=== PATIENT | female | born 1985 | race Hispanic/Latino ===

== ENCOUNTER 2019-07-19 05:46 | Inpatient (IN) | payer MEDICAID ==
[~2019-07-19] VITALS: Ht 160 cm; Wt 78.5 kg
[2019-07-19] MEDS ORDERED: LACTATED RINGERS 1000ML 1,000 ML IV PRN (05:52)
[2019-07-19] MEDS ORDERED: ROPIVACAINE 0.2% 100ML VIAL 100 ML EP SCH (06:00)
[2019-07-19] MEDS ORDERED: LACTATED RINGERS 500 ML 500 ML IV PRN (06:00)
[2019-07-19] MEDS ORDERED: NALOXONE HCL 0.4 MG/1 ML ML IV PRN (06:00)
[2019-07-19] MEDS ORDERED: EPHEDRINE SULFATE 50 MG/ML AMPULE IVP PRN (06:00)
[2019-07-19] MEDS ORDERED: OXYTOCIN-LR 20 UNITS/1000 ML 1,000 ML IV SCH (06:00)
[2019-07-19 06:50] LABS: APPEARANCE,URINE CLEAR (CLEAR); BILIRUBIN,URINE NEGATIVE (NEGATIVE); COLOR,URINE YELLOW (YELLOW); GLUCOSE, URINE (UA) NEGATIVE (NEGATIVE); KETONES,URINE NEGATIVE (NEGATIVE); LEUKOCYTE ESTERASE ,URINE TRACE (NEGATIVE); NITRATE,URINE NEGATIVE (NEGATIVE); OCCULT BLOOD,URINE NEGATIVE (NEGATIVE); PROTEIN,URINE NEGATIVE (NEGATIVE); UROBILINOGEN,URINE 0.2 mg/dL (0.2-1.0)
[2019-07-19 07:09] VITALS: BP 134/83
[2019-07-19] MEDS ORDERED: OXYTOCIN 10 USP UNITS/ML 20 UNIT in LACTATED RINGERS 1000ML 1,000 ML IV SCH (07:30)
[2019-07-19 07:33] LABS: BACTERIA,URINE Many /HPF (None Seen); RBC,URINE 0-1 /HPF (0-1); SQUAMOUS EPITHELIAL CELL,UR Moderate /HPF (0-2)
[2019-07-19 07:35] LABS: HEMATOCRIT 35.8 % (36-48); MEAN CORPUSCULAR HEMOGLOBIN 29.8 pg (27.0-33.0); MEAN CORPUSCULAR VOLUME 90.4 fL (79-99); PLATELET COUNT (AUTO) 208 K/uL (130-400); RED BLOOD CELL COUNT(AUTO) 3.96 MIL/uL (4.00-5.50); RED CELL DISTRIBUTION WIDTH 13.2 % (11.0-15.5); WHITE BLOOD COUNT (AUTO) 10.1 K/uL (4.8-10.8)
--- NOTE | 2019-07-19 11:05 | NUR ---
FUNDUS FIRM, BLEEDING SCANT. ICE PACK TO PERINEUM CONTINUES.
[2019-07-19] MEDS ORDERED: WITCH HAZEL 1 PAD TP PRN (11:15)
[2019-07-19] MEDS ORDERED: DIPH,PERTUSS(ACELL),TET VAC/PF 0.5 ML VIAL IM PRN (11:15)
[2019-07-19] MEDS ORDERED: BENZOCAINE/LANOLIN/ALOE VERA 60 ML AEROSOL TP PRN (11:15)
[2019-07-19] MEDS ORDERED: ACETAMINOPHEN-CODEINE 300/30MG TAB PO PRN (11:15)
[2019-07-19] MEDS ORDERED: LANOLIN 30GM OINTMENT TP PRN (11:15)
--- NOTE | 2019-07-19 11:20 | NUR ---
FUNDUS FIRM, BLEEDING SCANT. NO CLOTS EXPELLED. ICE PACK CONTINUES.
[2019-07-19 11:23] VITALS: BP 119/71
[2019-07-19] MEDS ORDERED: PNV1TABL17 PO (11:27)
--- NOTE | 2019-07-19 11:35 | NUR ---
FUNDUS FIRM, BLEEDING SCANT. NO CLOTS EXPELLED. BABY SKIN TO SKIN.
--- NOTE | 2019-07-19 11:40 | NUR ---
FUNDUS FIRM, BLEEDING SCANT. NO CLOTS EXPELLED. NO PAIN REPORTED. ADVISED PATIENT TO CALL WITH ANY NEEDS OR CONCERNS.
[2019-07-19] MEDS: OXYTOCIN-LR 20 UNITS/1000 ML 1,000 ML IV SCH (11:49)
--- NOTE | 2019-07-19 12:40 | NUR ---
PATIENT ABLE TO AMBULATE TO RESTROOM WITHOUT ANY C/O DIZZINESS. PT VOIDED 700ML. PERICARE GIVEN.
--- NOTE | 2019-07-19 12:55 | NUR ---
QBL= 65G 2 HOUR
[2019-07-19 13:03] VITALS: BP 122/80
[2019-07-19] MEDS: IBUPROFEN 600 MG TABLET PO PRN (14:36)
[2019-07-19 16:00] VITALS: BP 97/56
[2019-07-19 19:52] VITALS: BP 109/69
[2019-07-19] MEDS: DOCUSATE SODIUM 100 MG CAP PO SCH (21:36)
[2019-07-20 00:24] VITALS: BP 115/76
[2019-07-20] MEDS: IBUPROFEN 600 MG TABLET PO PRN ×2 (00:51→08:49)
[2019-07-20 04:25] VITALS: BP 100/71
[2019-07-20 07:19] VITALS: BP 114/68
[2019-07-20 08:10] LABS: HEPATITIS Bs ANTIGEN SCREEN P Negative (Negative)
[2019-07-20] MEDS: DOCUSATE SODIUM 100 MG CAP PO SCH (08:47)
[2019-07-20] MEDS: OXYTOCIN-LR 20 UNITS/1000 ML 1,000 ML IV SCH (11:15)
[2019-07-20 11:35] VITALS: BP 112/67
--- NOTE | 2019-07-20 14:40 | NUR ---
PATIENT LEFT UNIT VIA WHEELCHAIR WITH BABY IN HAND. PERSONAL VEHICLE USED FOR TRANSPORTATION. BABY SECURE IN CARSEAT. NO COMPLAINTS OR CONCERNS ADDRESSED FROM PATIENT ON DISCHARGE.
== END 2019-07-20 14:40 | disposition home or self-care (01) | DRG 560 ==
LOC: LDH 05:46 → WSH 12:58 → PREOBSVTOIN 07-26 05:46
PROC: 10E0XZZ Delivery of Products of Conception, External Approach (ICD-10-PCS; principal; 2019-07-19)
PROC: 3E0234Z Introduction of Serum, Toxoid and Vaccine into Muscle, Percutaneous Approach (ICD-10-PCS; 2019-07-19)
DX: O69.81X0 Labor and delivery complicated by cord around neck, without compression, not applicable or unspecified (principal); Z37.0 Single live birth; Z23 Encounter for immunization; Z3A.39 39 weeks gestation of pregnancy
CPT/HCPCS: 36415; 76815; 81001; 85027; 86592; 86850; 86900; 86901; 87088; 87340; 90715; A4314; G0378; J2590; J2795

== ENCOUNTER → 2022-08-07 | Outpatient (CLI) | payer BC, MEDICAID ==
[~2022-08-07] MED LIST: PNV1TABL17 PO
== END | disposition home or self-care (01) ==
LOC: RAH 13:40
PROVIDERS: ATTEND Obstetrics & Gynecology
DX: R10.31 Right lower quadrant pain (principal); I86.8 Varicose veins of other specified sites
CPT/HCPCS: 76882

== ENCOUNTER 2022-10-27 15:57 | Emergency (ER) | payer BC, MEDICAID ==
[~2022-10-27] VITALS: Ht 160 cm; Wt 78.7 kg
[~2022-10-27 15:57] MED LIST changes: +IBUP-2088 PO
[2022-10-27] MEDS ORDERED: KETO10 PO (17:41)
[2022-10-27] MEDS ORDERED: MORPHINE 4 MG SYG ONE (17:45)
[2022-10-27] MEDS ORDERED: CIPR7.5D OT (17:54)
[2022-10-27] MEDS ORDERED: AMOX500C2 PO (17:54)
[2022-10-27] MEDS ORDERED: ACETAMINOPHEN WITH CODEINE 1 TAB TAB PO ONE (18:00)
[2022-10-27] MEDS ORDERED: MORPHINE 4 MG SYG IM ONE (18:00)
[2022-10-27 18:26] VITALS: BP 148/80; PULSE 82; RESP 18; O2SAT 99
== END 2022-10-27 18:27 | disposition home or self-care (01) ==
LOC: EDH 15:57
DX: R51.9 Headache, unspecified (principal)
CPT/HCPCS: 99284; 96372; J2270

== ENCOUNTER 2022-10-29 10:45 | Observation (INO) | payer BC, MEDICAID ==
[~2022-10-29] VITALS: Ht 160 cm; Wt 78.5 kg
[~2022-10-29 10:45] MED LIST changes: +AMOX500C2 PO; +CIPR7.5D OT; +KETO10 PO
[2022-10-29 10:47] VITALS: BP 155/100; PULSE 81; RESP 16
[2022-10-29] MEDS: LACTATED RINGERS 1000ML IV SCH ×3 (12:40→14:51)
[2022-10-29] MEDS: BUTALB/ACETAMINOPHEN/CAFFEINE 1 EACH TABLET PO PRN ×2 (12:49→17:22)
[2022-10-29 15:18] LABS: BASOPHILS # (AUTO) 0.02 K/uL (0.00-0.20); BASOPHILS % (AUTO) 0.2 % (0.0-5.0); EOSINOPHILS # (AUTO) 0.06 K/uL (0.00-0.70); EOSINOPHILS % (AUTO) 0.7 % (0.0-8.0); HEMATOCRIT 30.6 % (36-48); IMMATURE GRANULOCYTE ABSOLUTE 0.04 K/uL (0-1); LYMPHOCYTES # (AUTO) 2.5 K/uL (1.0-4.8); LYMPHOCYTES % (AUTO) 28.1 % (21.0-51.0); MEAN CORPUSCULAR HEMOGLOBIN 29.2 pg (27.0-33.0); MEAN CORPUSCULAR VOLUME 91.1 fL (79-99); MONOCYTES # (AUTO) 0.4 K/uL (0.1-1.0); MONOCYTES % (AUTO) 4.8 % (3.0-13.0); NEUTROPHILS # (AUTO) 5.8 K/uL (1.8-7.7); NEUTROPHILS % (AUTO) 65.7 % (40.0-77.0); PLATELET COUNT (AUTO) 214 K/uL (130-400); RED BLOOD CELL COUNT(AUTO) 3.36 MIL/uL (4.00-5.50); RED CELL DISTRIBUTION WIDTH 14.6 % (11.0-15.5); WHITE BLOOD COUNT (AUTO) 8.8 K/uL (4.8-10.8)
== END 2022-10-29 17:45 | disposition home or self-care (01) ==
LOC: EDH 10:45 → LDH 10:46
PROVIDERS: ADMIT Obstetrics & Gynecology; ATTEND Obstetrics & Gynecology
DX: O90.89 Other complications of the puerperium, not elsewhere classified (principal); R51.9 Headache, unspecified; R03.0 Elevated blood-pressure reading, without diagnosis of hypertension; H92.09 Otalgia, unspecified ear; M54.2 Cervicalgia
CPT/HCPCS: 96360; 96361; 62273; 85025; 36415; G0378 ×7; G0379; J7120 ×2; 59025

== ENCOUNTER 2024-05-17 11:53 | Emergency (ER) | payer BC, MEDICAID ==
[~2024-05-17] VITALS: Ht 157.5 cm; Wt 77.1 kg
[2024-05-17 12:31] LABS: BASOPHILS # (AUTO) 0.02 K/uL (0.00-0.20); BASOPHILS % (AUTO) 0.3 % (0.0-5.0); EOSINOPHILS # (AUTO) 0.14 K/uL (0.00-0.70); EOSINOPHILS % (AUTO) 1.8 % (0.0-8.0); HEMATOCRIT 38.1 % (36-48); IMMATURE GRANULOCYTE ABSOLUTE 0.02 K/uL (0-1); LYMPHOCYTES # (AUTO) 2.5 K/uL (1.0-4.8); LYMPHOCYTES % (AUTO) 31.2 % (21.0-51.0); MEAN CORPUSCULAR HEMOGLOBIN 30.8 pg (27.0-33.0); MEAN CORPUSCULAR HGB CONC 34.4 g/dL (32.0-36.0); MEAN CORPUSCULAR VOLUME 89.4 fL (79-99); MONOCYTES # (AUTO) 0.4 K/uL (0.1-1.0); MONOCYTES % (AUTO) 5.3 % (3.0-13.0); NEUTROPHILS # (AUTO) 4.8 K/uL (1.8-7.7); NEUTROPHILS % (AUTO) 61.1 % (40.0-77.0); PLATELET COUNT (AUTO) 266 K/uL (130-400); RED BLOOD CELL COUNT(AUTO) 4.26 MIL/uL (4.00-5.50); WHITE BLOOD COUNT (AUTO) 7.9 K/uL (4.8-10.8)
--- NOTE | 2024-05-17 12:39 | ERN ---
General Chief Complaint: Abdominal Pain Stated Complaint: CHEST PAIN Time Seen by MD: 11:56 Time Seen by Midlevel: 11:56 Source: patient History of Present Illness Initial Comments 38-year-old female who presents to the emergency department due to chest pain onset this morning. Patient reports she has been having acid reflux x2 days with a burning sensation down the chest. Denies any difficulty breathing, abdominal pain, nausea, vomiting or further associated symptoms. Denies si gnificant past medical history. Allergies: Coded Allergies: No Known Drug Allergies (Unverified Allergy, Unknown, 07/19/19) Home Meds Active Scripts Omeprazole (Omeprazole) 10 Mg Capsule.dr, 10 MG PO DAILY for 7 Days, #7 CAP Prov:LAZARUS LYON 05/17/24 Amoxicillin (Amoxicillin) 500 Mg Capsule, 500 MG PO TID for 10 Days, #30 CAP Prov:ESPERANZA DUPONT Sr., MD 10/27/22 Ciprofloxacin HCl/Dexameth (Ciprodex Otic Suspension) 7.5 Ml Drops.susp, 7.5 ML OT TID for 10 Days, #2 DROP Prov:ESPERANZA DUPONT Sr., MD 10/27/22 Ketorolac Tromethamine (Toradol) 10 Mg Tab, 10 MG PO TID for Headache, #6 TAB 0 Refills Please do not mix with other NSAIDS; also do not renew this prescription for at least one month Prov:ESPERANZA DUPONT Sr., MD 10/27/22 Reported Medications Ibuprofen (Motrin/Advil) 600 Mg Tab, 600 MG PO Q8H, #15 TAB 10/26/22 Pnv Cmb#21/Iron/Folic Acid ( Complete Caplet) 1 Each Tablet, 1 EACH PO DAILY, TAB 07/19/19 Past Medical History Past Medical History: No Pertinent History, Anxiety, GERD Past Surgical History: None, Unknown Social History Social History: Negative, Lives with family Female( History) LMP: Apr 14, 2025 ROS Dictation Constitutional: Negative for fever,chills, and weight loss Eyes: Negative for injury, pain,redness, and discharge ENT: Negative for injury,pain or swelling Cardiovascular: Positive for chest pain Negative for chest pain, palpitations, and edema Respiratory: Negative for shortness of breath, cough, and wheezing, Abdomen/GI: Negative for abdominal pain, nausea, vomiting, diarrhea, and constipation Back: Negative for injury and pain : Negative for painful urination, bleeding or discharge MS/Extremity: Negative for injury and deformity Skin: Negative for rash, and discoloration Neuro: Negative for headache, weakness, numbness, tingling, and seizure Psych: Negative for suicide ideation, homicidal ideation, and hallucinations Physical Exam Physical Exam Dictation General: awake, alert, no acute distress Head/Face: Normocephalic, atraumatic Eyes: PERRL, EOMI, normal conjunctiva ENT: oral cavity clear, oral mucosa moist Neck: Normal range of motion, supple Cardiovascular: RRR, normal S1/S2 Respiratory: CTAB, no respiratory distress, no rales or wheezes Chest: Pain reproducible on palpation Abdomen: Soft, non-tender, non-distended, no guarding or rebound. Skin: Warm, dry, normal turgor, no rash MS/Extremity: Pulses equal, no cyanosis, neurovascular intact, FROM Neuro: COAx4, GCS 15, no neurological deficits, normal gait Psych: Normal behavior, mood, and affect normal Results Laboratory and Microbiology Lab and Micro Result Laboratory Tests Test 05/17/24 12:16 05/17/24 16:32 White Blood Count 7.9 K/uL (4.8-10.8) Red Blood Count 4.26 MIL/uL (4.00-5.50) Hemoglobin 13.1 g/dL (12.0-16.0) Hematocrit 38.1 % (36-48) Mean Corpuscular Volume 89.4 fL (79-99) Mean Corpuscular Hemoglobin 30.8 pg (27.0-33.0) Mean Corpuscular Hemoglobin Concent 34.4 g/dL (32.0-36.0) Red Cell Distribution Width 13.0 % (11.0-15.5) Platelet Count 266 K/uL (130-400) Mean Platelet Volume 9.7 fL (7.5-10.5) Immature Granulocyte % (Auto) 0.3 % (0-1) Neutrophils (%) (Auto) 61.1 % (40.0-77.0) Lymphocytes (%) (Auto) 31.2 % (21.0-51.0) Monocytes (%) (Auto) 5.3 % (3.0-13.0) Eosinophils (%) (Auto) 1.8 % (0.0-8.0) Basophils (%) (Auto) 0.3 % (0.0-5.0) Neutrophils # (Auto) 4.8 K/uL (1.8-7.7) Lymphocytes # (Auto) 2.5 K/uL (1.0-4.8) Monocytes # (Auto) 0.4 K/uL (0.1-1.0) Eosinophils # (Auto) 0.14 K/uL (0.00-0.70) Basophils # (Auto) 0.02 K/uL (0.00-0.20) Absolute Immature Granulocyte (auto 0.02 K/uL (0-1) Nucleated Red Blood Cells 0.0 % (0.0-0.19) Sodium Level 139 mmol/L (136-145) Potassium Level 3.8 mmol/L (3.5-5.1) Chloride Level 104 mmol/L (101-111) Carbon Dioxide Level 30 mmol/L (21-32) Blood Urea Nitrogen 9 mg/dL (7-18) Creatinine 0.6 mg/dL (0.5-1.0) Glomerular Filtration Rate Calc 117 mL/min (>90) Random Glucose 100 mg/dL (70-105) Total Calcium 8.9 mg/dL (8.5-10.1) Total Bilirubin 0.4 mg/dL (0.2-1.0) Aspartate Amino Transf (AST/SGOT) 12 U/L (10-37) Alanine Aminotransferase (ALT/SGPT) 19 U/L (12-78) Alkaline Phosphatase 65 U/L (50-136) Troponin I High Sensitivity < 4 ng/L (4-50) L Total Protein 7.2 g/dL (6.0-8.3) Albumin 4.0 g/dL (3.5-5.0) Urine Color LIGHT-YELLOW (YELLOW) Urine Appearance CLEAR (CLEAR) Urine pH 6.0 (5.0-8.0) Urine Specific Curran 1.019 (1.001-1.031) Urine Protein NEGATIVE mg/dL (NEGATIVE) Urine Glucose (UA) NEGATIVE mg/dL (NEGATIVE) Urine Ketones 10 mg/dL (NEGATIVE) H Urine Occult Blood NEGATIVE (NEGATIVE) Urine Nitrate NEGATIVE (NEGATIVE) Urine Bilirubin NEGATIVE mg/dL (NEGATIVE) Urine Urobilinogen 0.2 mg/dL (0.2-1.0) Urine Leukocyte Esterase 25 Lily/uL (NEGATIVE) H Urine RBC 2-5 /HPF (0-1) H Urine WBC 2-5 /HPF (0-1) H Urine Squamous Epithelial Cells FEW /HPF (0-2) Urine Bacteria RARE /HPF (None Seen) Urine HCG, Qualitative NEGATIVE (NEGATIVE) Urine Opiates Screen NEGATIVE (NEGATIVE) Urine Barbiturates Screen NEGATIVE (NEGATIVE) Urine Phencyclidine Screen NEGATIVE (NEGATIVE) Urine Amphetamines Screen NEGATIVE (NEGATIVE) Urine Benzodiazepines Screen NEGATIVE (NEGATIVE) Urine Cocaine Screen NEGATIVE (NEGATIVE) Urine Marijuana (THC) Screen NEGATIVE (NEGATIVE) Labs Reviewed?: Yes EKG/XRAY/US/CT/MRI EKG Comment Date: 05/17/2024 Time: 1247 Rate: 74 EKG interpretation: Sinus rhythm, no STEMI, normal EKG Reviewed by ED Attending MDM MDM: Differential diagnosis: Acid reflux, atypical chest pain, musculoskeletal Rationale: 38-year-old female who presents to the emergency department due to chest pain onset this morning. Patient reports she has been having acid reflux x2 days with a burning sensation down the chest. Denies any difficulty breathing, abdominal pain, nausea, vomiting or further associated symptoms. Denies significant past medical history. Labs obtained are nonspecific, negative troponin, hepatic function within normal limits, drug screen negative, UA indicates positive leukocytes minimal WBCs and squamous cells present. UA sent out for culture patient denies any urinary symptoms. EKG within normal limits. GI cocktail administered in the ED and on re-examination patient verbalized pain had improved. Chest pain reproducible on palpation ketorolac administered. Patient was educated on findings and diagnosis. Advised to follow up with PCP. Return to the emergency department if any worsening symptoms. Patient verbalized understanding. Patient stable for discharge. There are no social concerns with this patient. I independently interpreted the test that were performed, results were reviewed by me and considered findings on radiology if ordered. Medical management and examination interpretation discussions were had by me with other qualified healthcare professionals as indicated for the patient's care. ED Course Orders Procedure Category Date Status Time Cbc With Differential LAB 05/17/24 Complete 11:56 Comprehensive LAB 05/17/24 Complete Metabolic Panel 11:56 Urinalysis LAB 05/17/24 Complete W/Microscopic 11:56 ,Urine Test LAB 05/17/24 Complete 11:56 Drug Screen Urine LAB 05/17/24 Complete 11:56 Troponin I High LAB 05/17/24 Complete Sensitivity 11:56 12 Lead Ekg Tracing- EKG 05/17/24 Complete Technical 11:56 Mag/Alum/Simeth 30ml PHA 05/17/24 Complete (Maalox Plus 30ml) 12:30 Lidocaine Hcl 2% PHA 05/17/24 Complete Viscous (Lidocaine Hcl 12:30 Pantoprazole 40mg Tab PHA 05/17/24 Complete (Protonix 40mg Tab 12:30 Ketorolac PHA 05/17/24 Complete Tromethamine 15mg/Ml 17:30 Current Medications Medications (Trade) Dose Ordered Sig/Chantelle Route PRN Reason Start Time Stop Time Status Last Admin Dose Admin Al Hydroxide/Mg Hydroxide (MAALox PLUS 30ML) 30 ml ONCE ONCE PO 05/17/24 12:30 05/17/24 12:31 DC 05/17/24 14:56 Ketorolac Tromethamine (toRADol) 15 mg ONCE ONCE IM 05/17/24 17:30 05/17/24 17:26 DC 05/17/24 17:15 Lidocaine HCl (Lidocaine HCl 2% Viscous) 10 ml ONCE ONCE PO 05/17/24 12:30 05/17/24 12:31 DC 05/17/24 14:56 Pantoprazole Sodium (PROTonix 40MG TAB) 40 mg ONCE ONCE PO 05/17/24 12:30 05/17/24 12:31 DC 05/17/24 14:56 Vital Signs Date Time Temp Pulse Resp B/P (MAP) Pulse Ox O2 Delivery O2 Flow Rate FiO2 05/17/24 17:20 98.4 92 16 142/88 98 Room Air* 0 21 05/17/24 15:07 98.4 95 16 140/90 98 Room Air* 0 21 05/17/24 11:59 98.4 99 16 144/99 0 Room Air 0 DX & DISP Disposition: Discharge Departure Impression: Primary Impression: Acid reflux Additional Impressions: Atypical chest pain, Musculoskeletal chest pain Condition: Stable Scripts Omeprazole (Omeprazole) 10 Mg Capsule. 10 MG PO DAILY for 7 Days, #7 CAP Prov: LAZARUS LYON 05/17/24 Additional Instructions: Discharge home. Rest. Follow up with primary care in 24 hours. Return to the ER for any acute changes or worsening symptoms. If any medications were prescribed take as directed. Okay to continue home medications unless otherwise discussed during your visit in the emergency room today. Patient was also advised to follow-up with primary care physician in 1 to 2 days for continued monitoring. Referrals: ANEESH EDOUARD Jr., MD (PCP) I participated in the following activities of this patient's care: For this patient encounter, I reviewed the PA or CVOR NURSE documentation, treatment plan, and medical decision making. I did not have [id number] time with this patient. I will sign as the reviewing DrLesli And agree with the treatment plan and disposition. LAZARUS LYON May 17, 2024 12:39
--- NOTE | 2024-05-17 12:50 | EKG ---
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
[2024-05-17 13:42] LABS: CREATININE 0.6 mg/dL (0.5-1.0); POTASSIUM 3.8 mmol/L (3.5-5.1)
[2024-05-17 13:44] LABS: BILIRUBIN,TOTAL 0.4 mg/dL (0.2-1.0); TOTAL PROTEIN, SERUM 7.2 g/dL (6.0-8.3)
[2024-05-17] MEDS: PANTOPrazole 40 MG TAB DR PO ONE (14:56)
[2024-05-17] MEDS: LIDOCAINE HCL 2% VISCOUS 15 ML UDCUP PO ONE (14:56)
[2024-05-17] MEDS: MAG/ALUM/SIMETH 30 ML UDCUP PO ONE (14:56)
[2024-05-17 16:45] LABS: APPEARANCE,URINE CLEAR (CLEAR); BILIRUBIN,URINE NEGATIVE (NEGATIVE); COLOR,URINE LIGHT-YELLOW (YELLOW); GLUCOSE, URINE (UA) NEGATIVE (NEGATIVE); KETONES,URINE 10 mg/dL (NEGATIVE); LEUKOCYTE ESTERASE ,URINE 25 Leu/uL (NEGATIVE); NITRATE,URINE NEGATIVE (NEGATIVE); OCCULT BLOOD,URINE NEGATIVE (NEGATIVE); PROTEIN,URINE NEGATIVE (NEGATIVE); UROBILINOGEN,URINE 0.2 mg/dL (0.2-1.0)
[2024-05-17 16:49] LABS: BACTERIA,URINE RARE /HPF (None Seen); MUCUS,URINE RARE LPF (None Seen); SQUAMOUS EPITHELIAL CELL,UR FEW /HPF (0-2)
[2024-05-17 16:50] LABS: HCG,QUALITATIVE URINE NEGATIVE (NEGATIVE)
[2024-05-17 16:54] LABS: AMPHET/METH SCREEN,URINE NEGATIVE (NEGATIVE); BARBITURATE SCREEN, URINE NEGATIVE (NEGATIVE); BENZODIAZEPINES SCREEN,URINE NEGATIVE (NEGATIVE); CANNABINOID SCREEN,URINE NEGATIVE (NEGATIVE); COCAINE SCREEN,URINE NEGATIVE (NEGATIVE); OPIATE SCREEN,URINE NEGATIVE (NEGATIVE); PHENCYCLIDINE SCREEN,URINE NEGATIVE (NEGATIVE)
[2024-05-17] MEDS ORDERED: OMEP10CA5 PO (17:10)
[2024-05-17] MEDS: ketOROlac 15MG/ML VIAL (15MG/ML) IM ONE (17:15)
[2024-05-17 17:20] VITALS: BP 142/88; PULSE 92; RESP 16; TEMP 98.5; O2SAT 98
== END 2024-05-17 17:26 | disposition home or self-care (01) ==
LOC: EDH 11:53
DX: K21.9 Gastro-esophageal reflux disease without esophagitis (principal); R07.89 Other chest pain; Z79.1 Long term (current) use of non-steroidal anti-inflammatories (NSAID); Z79.899 Other long term (current) drug therapy
CPT/HCPCS: 99284; 84484; 80053; 80305; 85025; 81025; 36415; 96372; 93005; 81001; J1885